=== PATIENT | female | born 1935 | race Two or more races ===

== ENCOUNTER 2022-10-25 10:53 | Inpatient (IN) | payer OTHER, MEDICAID ==
[~2022-10-25] VITALS: Ht 165.1 cm; Wt 58.4 kg
[2022-10-25] MEDS ORDERED: SODIUM CHLORIDE 0.9% 1,000 ML IV ONE (11:15)
[2022-10-25 11:57] LABS: Basophils # (auto) 0 10 ^3/uL (0-0.2); Basophils % (auto) 0.4 % (0.0-2.0); Eosinophils # (auto) 0.1 10 ^3/uL (0-0.8); Eosinophils % (auto) 0.8 % (0.0-7.0); Hematocrit 35.4 % (36.0-46.0); Hemoglobin 11.9 g/dL (12.2-16.2); Lymphocytes # (auto) 1.1 10 ^3/uL (0.4-5.4); Lymphocytes % (auto) 12.1 % (10.0-50.0); Mean Corpuscular Hemoglobin 28.9 pg (28.0-32.0); Mean Corpuscular Hgb Conc. 33.6 g/dL (32.0-36.0); Monocytes # (auto) 0.9 10 ^3/uL (0-1.3); Monocytes % (auto) 9.8 % (0.0-12.0); Neutrophils % (auto) 76.9 % (37.0-80.0); Red Blood Cells 4.12 10^6/uL (4.0-5.20); Red Cell Distribution Width 15.1 % (11.8-14.3); White Blood Cell 9.1 10^3/uL (4.4-10.8)
[2022-10-25 12:41] LABS: Albumin 3.6 g/dL (3.4-5.0); Calcium 8.8 mg/dL (8.5-10.1); Potassium 3.9 mmol/L (3.5-5.1)
[2022-10-25 12:46] LABS: BUN/Creatinine Ratio 31.1 (10.0-20.0); Bilirubin, Total 0.3 mg/dL (0.2-1.0); Total Protein 6.7 g/dL (6.4-8.2)
[2022-10-25 14:13] LABS: Urine Bacteria NONE SEEN /hpf (None Seen); Urine Blood Negative /uL (Negative); Urine Specific Gravity 1.006 (1.001-1.035); Urine WBC 1 /hpf (0 - 5)
[2022-10-25] MEDS ORDERED: ENOXAPARIN SOD 60 MG/0.6 ML SYRINGE SC ONE (15:45)
[2022-10-25] MEDS ORDERED: LEVO100T8 PO (15:56)
[2022-10-25] MEDS ORDERED: SIMV10TA84 PO (15:56)
[2022-10-25] MEDS ORDERED: DONE5TAB80 PO (15:56)
[2022-10-25] MEDS ORDERED: AMLO-489 PO (15:56)
[2022-10-25] MEDS ORDERED: DORZ2SOL18 EACHEYE (15:56)
[2022-10-25] MEDS ORDERED: ONDANSETRON HCL 4 MG/2 ML VIAL IV PRN (16:00)
[2022-10-25] MEDS ORDERED: ACETAMINOPHEN 325 MG TAB PO PRN (16:00)
[2022-10-25] MEDS ORDERED: NITROGLYCERIN 0.4 MG SL TAB SL PRN (16:00)
[2022-10-25] MEDS ORDERED: HYDROcodone-ACET 5/325MG TAB PO PRN (16:00)
[2022-10-25] MEDS ORDERED: MORPHINE SULFATE INJ 2 MG/ml SYRG IV PRN (16:00)
[2022-10-25] MEDS: SODIUM CHLOR 0.9% PF (SALINE LOCK) 10ML VIAL/SYR IV SCH (22:00)
[2022-10-25] MEDS: DORZOLAMIDE TIMOLOL EACHEYE SCH (22:00)
[2022-10-25] MEDS: PRAVASTATIN SODIUM 20 MG TAB PO SCH (22:02)
[2022-10-26 05:52] LABS: Basophils # (auto) 0 10 ^3/uL (0-0.2); Basophils % (auto) 0.3 % (0.0-2.0); Eosinophils # (auto) 0 10 ^3/uL (0-0.8); Eosinophils % (auto) 0.6 % (0.0-7.0); Hematocrit 34.1 % (36.0-46.0); Hemoglobin 11.7 g/dL (12.2-16.2); Lymphocytes # (auto) 1.4 10 ^3/uL (0.4-5.4); Lymphocytes % (auto) 16.3 % (10.0-50.0); Mean Corpuscular Hemoglobin 29.6 pg (28.0-32.0); Mean Corpuscular Hgb Conc. 34.4 g/dL (32.0-36.0); Mean Corpuscular Volume 86.1 fL (80.0-100.0); Monocytes # (auto) 1.3 10 ^3/uL (0-1.3); Neutrophils # (auto) 5.9 10 ^3/uL (1.6-8.6); Neutrophils % (auto) 67.8 % (37.0-80.0); Red Blood Cells 3.96 10^6/uL (4.0-5.20); Red Cell Distribution Width 14.7 % (11.8-14.3); White Blood Cell 8.7 10^3/uL (4.4-10.8)
[2022-10-26] MEDS: SODIUM CHLOR 0.9% PF (SALINE LOCK) 10ML VIAL/SYR IV SCH ×3 (06:00→22:28)
[2022-10-26 06:07] LABS: Albumin 3.1 g/dL (3.4-5.0); Calcium 8.4 mg/dL (8.5-10.1); Potassium 3.3 mmol/L (3.5-5.1)
[2022-10-26 06:10] LABS: BUN/Creatinine Ratio 27.5 (10.0-20.0); Bilirubin, Total 0.7 mg/dL (0.2-1.0); Total Protein 6.7 g/dL (6.4-8.2)
[2022-10-26] MEDS ORDERED: DONEPEZIL HYDROCHLORIDE 5 MG TAB PO SCH (10:00)
[2022-10-26] MEDS: DORZOLAMIDE TIMOLOL EACHEYE SCH ×2 (10:00→22:00)
[2022-10-26] MEDS: amLODIPine BESYLATE 5 MG TAB PO SCH (10:15)
[2022-10-26] MEDS: LEVOTHYROXINE SODIUM 100 MCG TAB PO SCH (10:15)
[2022-10-26] MEDS ORDERED: POTASSIUM CHL 20 Meq TABLET PO ONE (12:30)
[2022-10-26] MEDS ORDERED: LORazepam 2MG/ML-1ML VIAL IV ONE (19:15)
[2022-10-26] MEDS ORDERED: LORazepam 2MG/ML-1ML VIAL IV PRN (21:45)
[2022-10-26 21:57] LABS: Cholesterol 155 mg/dL (< 200)
[2022-10-26 22:00] LABS: HDL Cholesterol 73 mg/dL (40-59); LDL Cholesterol 72 mg/dL (< 100); Triglycerides 42 mg/dL (< 150)
[2022-10-26] MEDS: PRAVASTATIN SODIUM 20 MG TAB PO SCH (22:00)
[2022-10-26 22:07] LABS: Folate (Folic Acid) 12.49 ng/mL (5.38-24)
[2022-10-27 05:10] LABS: Basophils # (auto) 0 10 ^3/uL (0-0.2); Basophils % (auto) 0.3 % (0.0-2.0); Eosinophils # (auto) 0.1 10 ^3/uL (0-0.8); Eosinophils % (auto) 0.7 % (0.0-7.0); Hematocrit 35.7 % (36.0-46.0); Hemoglobin 12.1 g/dL (12.2-16.2); Lymphocytes # (auto) 1.6 10 ^3/uL (0.4-5.4); Lymphocytes % (auto) 17.7 % (10.0-50.0); Mean Corpuscular Hemoglobin 29.3 pg (28.0-32.0); Mean Corpuscular Volume 86.2 fL (80.0-100.0); Monocytes # (auto) 1.3 10 ^3/uL (0-1.3); Monocytes % (auto) 14.2 % (0.0-12.0); Neutrophils # (auto) 6.2 10 ^3/uL (1.6-8.6); Neutrophils % (auto) 67.1 % (37.0-80.0); Red Blood Cells 4.14 10^6/uL (4.0-5.20); Red Cell Distribution Width 15.1 % (11.8-14.3); White Blood Cell 9.2 10^3/uL (4.4-10.8)
[2022-10-27 05:24] LABS: BUN/Creatinine Ratio 26.5 (10.0-20.0); Calcium 8.7 mg/dL (8.5-10.1); Potassium 3.4 mmol/L (3.5-5.1)
[2022-10-27] MEDS: SODIUM CHLOR 0.9% PF (SALINE LOCK) 10ML VIAL/SYR IV SCH ×3 (06:05→22:00)
[2022-10-27] MEDS: DORZOLAMIDE TIMOLOL EACHEYE SCH ×2 (10:16→22:00)
[2022-10-27] MEDS: LEVOTHYROXINE SODIUM 100 MCG TAB PO SCH (11:18)
[2022-10-27] MEDS: ASPirin 81 mg TAB PO SCH (11:18)
[2022-10-27] MEDS: amLODIPine BESYLATE 5 MG TAB PO SCH (11:18)
[2022-10-27] MEDS ORDERED: POTASSIUM CHL 20 Meq TABLET PO ONE (13:45)
[2022-10-27] MEDS ORDERED: Ensure HIGH Protein Chocolate 8oz Bottle PO SCH (18:00)
[2022-10-27] MEDS: LORazepam 2MG/ML-1ML VIAL IV PRN (19:55)
[2022-10-27 21:15] VITALS: BP 152/76
[2022-10-27] MEDS: PRAVASTATIN SODIUM 20 MG TAB PO SCH (22:00)
[2022-10-28] MEDS: LORazepam 2MG/ML-1ML VIAL IV PRN ×2 (00:15→10:35)
[2022-10-28] MEDS: SODIUM CHLOR 0.9% PF (SALINE LOCK) 10ML VIAL/SYR IV SCH (06:15)
[2022-10-28 09:00] VITALS: BP 114/59
[2022-10-28] MEDS: ASPirin 81 mg TAB PO SCH (09:01)
[2022-10-28] MEDS: LEVOTHYROXINE SODIUM 100 MCG TAB PO SCH (09:02)
[2022-10-28] MEDS: DORZOLAMIDE TIMOLOL EACHEYE SCH (10:00)
[2022-10-28] MEDS ORDERED: amLODIPine BESYLATE 5 MG TAB PO SCH (10:00)
[2022-10-28] MEDS ORDERED: ASPI-325 PO (11:00)
[2022-10-28 11:31] VITALS: BP 138/66
== END 2022-10-28 13:00 | disposition home or self-care (01) | DRG 64 ==
LOC: EDBD 10:53 → ER 10:53 → TELE 16:18 → TELE-EAST 10-27 20:33
PROVIDERS: ADMIT Nurse Practitioner Family; ATTEND Internal Medicine
DX: I63.9 Cerebral infarction, unspecified (principal); I21.A1 Myocardial infarction type 2; G93.40 Encephalopathy, unspecified; I10 Essential (primary) hypertension; E03.9 Hypothyroidism, unspecified; E78.5 Hyperlipidemia, unspecified; M25.461 Effusion, right knee; F03.90 Unspecified dementia, unspecified severity, without behavioral disturbance, psychotic disturbance, mood disturbance, and anxiety; Z79.82 Long term (current) use of aspirin; Z86.73 Personal history of transient ischemic attack (TIA), and cerebral infarction without residual deficits; Z91.81 History of falling
CPT/HCPCS: 36415; 70450; 70551; 71045; 72170; 73560; 73700; 76881; 80048; 80053; 80061; 81001; 82607; 82746; 83880; 84443; 84484; 85025; 93306; 93886; 96360; 96372; G0378